=== PATIENT | female | born 1960 | race Caucasian/White ===

== ENCOUNTER → 2024-06-03 08:41 | Outpatient (REF) | payer BC, SELFPAY | LOC: HWRAD 08:41 | PROVIDERS: ATTENDING PHYSICIAN Specialist; FAMILY PHYSICIAN Family Medicine | DX: R93.89 Abnormal findings on diagnostic imaging of other specified body structures (principal) | CPT/HCPCS: 74177; Q9967 ==

== ENCOUNTER 2024-06-24 06:17 | Day surgery (SDC) | payer BC, SELFPAY | END 2024-06-24 15:31 | disposition home or self-care (01) | LOC: GI 06:17 | PROVIDERS: ATTENDING PHYSICIAN Specialist | DX: R19.4 Change in bowel habit (principal); K57.30 Diverticulosis of large intestine without perforation or abscess without bleeding; R68.81 Early satiety; R11.0 Nausea; R13.10 Dysphagia, unspecified; R14.0 Abdominal distension (gaseous); K22.89 Other specified disease of esophagus; D12.8 Benign neoplasm of rectum | CPT/HCPCS: 45380; 43239; 88305; 88342 ==